=== PATIENT | male | born 1965 | race Caucasian/White ===

== ENCOUNTER → 2022-01-24 12:12 | Outpatient (BNVA) | payer MEDICAID, SELFPAY | PROVIDERS: Visit Provider Family Medicine | DX: R05.9 Cough, unspecified (principal); J18.9 Pneumonia, unspecified organism; H93.13 Tinnitus, bilateral; Z98.890 Other specified postprocedural states; Z90.49 Acquired absence of other specified parts of digestive tract; J44.9 Chronic obstructive pulmonary disease, unspecified | CPT/HCPCS: 71046 ==

== ENCOUNTER → 2022-07-13 15:28 | Outpatient (BNVA) | payer MEDICAID, SELFPAY | PROVIDERS: PCP Family Medicine; Visit Provider Internal Medicine Pulmonary Disease | DX: J44.9 Chronic obstructive pulmonary disease, unspecified (principal); Z87.891 Personal history of nicotine dependence | CPT/HCPCS: 36415; 80053; 82785; 85025; 86003; 99204 ==

== ENCOUNTER 2022-10-05 08:32 | Outpatient (CLI) | payer MEDICAID, SELFPAY ==
--- NOTE | 2022-10-05 09:30 | CT_ITS ---
WS: [id number] LDCT LUNG CANCER SCREENING HISTORY: former smoker TECHNIQUE: Axial imaging performed from the apices to 1 cm below the costophrenic angles. Coronal and sagittal reformats are submitted with axial MIP series. All CT scans at [facility] use at least one of these dose optimization techniques: automated exposure control; mA and/or kV adjustment per patient size (includes targeted exams where dose is matched to clinical indication); or iterativ e reconstruction. DLP: 87.87 mGy.cm DIvol: Mean CTDIvol: 1.70 (mGy) COMPARISON: None available. Diagnostic quality: Satisfactory Lungs: Pulmonary hyperinflation with emphysema. Linear nodularity in the RIGHT upper lobe may be an a asaf of focal bronchiectasis with wall thickening. Nodular component measures up to 5 mm in diameter. There is an additional noncalcified 3 mm nodule RIGHT lower lobe. No mass or endobronchial lesions. Heart: Normal size heart with no pericardial effusion.. Other findings: Minimal atherosclerotic plaque in the coronary arteries. Normal size aorta. Subcutane ous soft tissue nodule along the medial anterior RIGHT chest wall is probably a sebaceous cyst. No os seous destructive process. CT/CT lung screening [id number] IMPRESSION: LUNG-RADS: 3-Probably Benign FOLLOW UP: 6 Month LDCT OTHER FINDINGS (S MODIFIER): None.
== END 2022-10-05 08:33 | disposition home or self-care (01) ==
PROVIDERS: PCP Family Medicine; Visit Provider Internal Medicine Pulmonary Disease
DX: Z12.2 Encounter for screening for malignant neoplasm of respiratory organs (principal); Z87.891 Personal history of nicotine dependence
CPT/HCPCS: 71271

== ENCOUNTER → 2023-01-08 16:36 | Outpatient (BNVA) | payer MEDICAID, SELFPAY | PROVIDERS: PCP Family Medicine; Visit Provider Nurse Practitioner Family | DX: L03.90 Cellulitis, unspecified (principal); J44.89 Other specified chronic obstructive pulmonary disease; J44.9 Chronic obstructive pulmonary disease, unspecified | CPT/HCPCS: 80053 ==

== ENCOUNTER 2023-02-20 08:43 | Outpatient (CLI) | payer MEDICAID, SELFPAY ==
[2023-02-20 09:07] VITALS: PULSE 77; RESP 18; O2SAT 98
[2023-02-20] MEDS: albuterol 2.5 mg/3 mL Neb INHALATION (09:07)
[2023-02-20 09:12] VITALS: PULSE 80
== END 2023-02-20 08:44 | disposition home or self-care (01) ==
PROVIDERS: PCP Family Medicine; Visit Provider Internal Medicine Pulmonary Disease
DX: R06.02 Shortness of breath (principal); Z87.891 Personal history of nicotine dependence; R94.2 Abnormal results of pulmonary function studies
CPT/HCPCS: 94060; 94618; 94726; 94729; J7613

== ENCOUNTER 2023-04-09 12:28 | Outpatient (CLI) | payer MEDICAID, SELFPAY ==
--- NOTE | 2023-04-09 13:00 | CT_ITS ---
WS: [id number] CT chest wo con [id number] HISTORY: lung cancer screening TECHNIQUE: Axial imaging performed through the thorax. Coronal and sagittal reformats are submitted. All CT scans at [facility] use at least one of these dose optimization techniques: automated exposure control; mA and/or kV adjustment per patient size (includes targeted exams where dose is mat ched to clinical indication); or iterative reconstruction. CONTRAST: None DLP: 537.24 mGy.cm COMPARISON: 10/05/2022 Lungs and central airway: Mild hyperinflation with centrilobular emphysema. RIGHT upper lobe nodule i s reidentified and appears slightly larger in size with increasing groundglass attenuation. The nodul ar component is less apparent. The entire complex measures 13 x 7 mm. No change in the 3 mm noncalcif ied nodule RIGHT lower lobe. No new mass or nodule. Pleura: Normal. No pleural effusion. Heart and pericardium: Normal size heart with no pericardial effusion. Mediastinum and joel: No mediastinum or hilar adenopathy. Vessels: Normal size aortic and pulmonary artery. No coronary artery calcifications. Chest wall and lower neck: Reidentified is a subcutaneous soft tissue nodule in the anterior RIGHT th orax measuring 6 x 7 mm. Upper abdomen: Normal adrenal glands. Mildly contracted gallbladder. Osseous structures: No destructive process. IMPRESSION: 1. Previously described RIGHT upper lobe nodule has minimally increased in size. The increase in siz e is predominantly subsolid consolidation. The subsolid opacification now measures 13 x 7 mm. Conside r 6-12-month chest CT follow-up. 2. No change in 3 mm micronodule RIGHT lower lobe. 3. Chronic emphysema. 4. No adenopathy.
== END 2023-04-09 12:29 | disposition home or self-care (01) ==
LOC: RAD 12:29
PROVIDERS: PCP Family Medicine; Visit Provider Internal Medicine Pulmonary Disease
DX: Z12.2 Encounter for screening for malignant neoplasm of respiratory organs (principal); R91.8 Other nonspecific abnormal finding of lung field; J43.9 Emphysema, unspecified
CPT/HCPCS: 71250

== ENCOUNTER 2023-04-25 06:00 | Outpatient (CLI) | payer MEDICAID, SELFPAY | END 2023-04-25 06:01 | LOC: SOT 04-27 10:15 | PROVIDERS: PCP Family Medicine; Visit Provider Nurse Practitioner | DX: Z46.89 Encounter for fitting and adjustment of other specified devices (principal); M25.532 Pain in left wrist | CPT/HCPCS: 97760; 99204; L3906 ==

== ENCOUNTER → 2023-04-25 13:16 | Outpatient (BNVA) | payer MEDICAID, SELFPAY | PROVIDERS: PCP Family Medicine; Referring Provider Family Medicine; Visit Provider Nurse Practitioner | DX: R22.32 Localized swelling, mass and lump, left upper limb (principal); M25.532 Pain in left wrist | CPT/HCPCS: 73130 ==

== ENCOUNTER 2023-05-03 06:39 | Outpatient (CLI) | payer MEDICAID, SELFPAY ==
--- NOTE | 2023-05-03 07:00 | US_ITS ---
WS: [id number] ULTRASOUND SOFT TISSUES LEFT hand HISTORY: left wrist pain COMPARISON: Radiograph 04/25/2023. TECHNIQUE: 2-D and color Doppler imaging is submitted. Ultrasound is directed along the dorsal surface of the LEFT hand at the area of swelling. There is an obvious soft tissue mass which is elongated and complex. There are cystic and solid components witho ut increased vascularity. There is no hyperemia. This mass extends over a length of at least 3.4 cm x 0.5 x 3.1 cm. Mass extends very close to the joint associated with the wrist. Exact location of whic h joint is difficult to determine. There is overlying soft tissue edema. IMPRESSION: Lobulated complex mass without increased vascularity along the dorsal surface of the hand measures 3. 4 x 0.5 x 3.1 cm. With no history of trauma this probably represents a ganglion, nerve sheath tumor w ithin the differential.. There is no increased vascularity.
== END 2023-05-03 06:40 | disposition home or self-care (01) ==
PROVIDERS: PCP Family Medicine; Visit Provider Nurse Practitioner
DX: M25.532 Pain in left wrist (principal); M25.432 Effusion, left wrist
CPT/HCPCS: 76882

== ENCOUNTER → 2023-05-18 08:48 | Outpatient (BNVA) | payer MEDICAID, SELFPAY | PROVIDERS: PCP Family Medicine; Visit Provider Nurse Practitioner | DX: M25.532 Pain in left wrist (principal); R22.32 Localized swelling, mass and lump, left upper limb | CPT/HCPCS: 20605; 99214 ==

== ENCOUNTER → 2023-06-07 08:15 | Outpatient (BNVA) | payer MEDICAID, SELFPAY | PROVIDERS: PCP Family Medicine; Visit Provider Internal Medicine Pulmonary Disease | DX: J44.89 Other specified chronic obstructive pulmonary disease (principal); J45.998 Other asthma; Z12.2 Encounter for screening for malignant neoplasm of respiratory organs; Z87.891 Personal history of nicotine dependence | CPT/HCPCS: 99214 ==

== ENCOUNTER → 2023-06-11 12:40 | Outpatient (BNVA) | payer MEDICAID, SELFPAY | PROVIDERS: PCP Family Medicine; Referring Provider Family Medicine; Visit Provider Dermatology | DX: L72.0 Epidermal cyst (principal); D48.5 Neoplasm of uncertain behavior of skin; D69.2 Other nonthrombocytopenic purpura; D22.5 Melanocytic nevi of trunk | CPT/HCPCS: 11102; 99203 ==

== ENCOUNTER 2023-07-03 11:12 | Outpatient (CLI) | payer MEDICAID, SELFPAY ==
--- NOTE | 2023-07-03 11:30 | PETR_ITS ---
PROCEDURE INFORMATION: Exam: PET/CT Skull Base to Mid-thigh Exam date and time: 07/03/2023 12:28 PM Age: 57 years old Clinical indication: Abnormal findings; Previously described right upper lobe nodule has minimally increased in size. The increase in size is predominantly subsolid consolidation. The subsolid opacification now measures 13 x 7 mm. Consider 6-12-month chest CT follow-up. 2. No change in 3 mm micronodule right lower lobe. 3; Additional info: Increase n size of nodule LABS AND CLINICAL REPORTS: Glucose: 94 mg/dl Treatment strategy for malignancy (PET staging): Initial Staging (PI) TECHNIQUE: Imaging protocol: Following at least four-hour fasting and following the injection of radiopharmaceutical, low dose CT images were obtained. Then, PET images were obtained. Attenuation corrected images were constructed using the CT scan. Fused images of PET and CT were reviewed. The standardized uptake values (SUV) reported below are maximum values within a region of interest, expressed in gm/ml. Exam includes orbital meatal line to mid-thigh. Radiopharmaceutical: 13 mCi F-18 FDG (Fluorodeoxyglucose), IV. Time of imaging post radiopharmaceutical administration: 1 hour Injection site: Left hand COMPARISON: US soft tissue/extremity [id number] 05/03/2023 7:01 AM, CT chest 04/09/2023, CT chest 10/05/2022 FINDINGS: Brain: Visualized brain has normal physiologic uptake. Pharynx: Mild asymmetric enlargement of the left palatine tonsil is noted on series 3, image 27 with asymmetric uptake, SUV max 7.1 compared with SUV max 4.0 on the right. Larynx: No abnormal uptake. Lungs, pleura and trachea: No abnormal uptake. Previously noted right upper lobe subsolid ill-defined region possible nodularity measuring approximately 1.3 x 0.7 cm on series 3, image 66 is unchanged compared with 04/09/2023 and is not radiotracer avid, SUV max 0.6. Similar 3 mm solid right lower lobe nodule on series 3, image 98. Mild bilateral centrilobular emphysematous changes are present. Heart: Normal physiologic uptake. Coronary arteries: Atherosclerotic calcification in the coronary arteries is noted. Mediastinal space: No abnormal uptake. Liver: No abnormal uptake. Gallbladder and bile ducts: No abnormal uptake. Pancreas: No abnormal uptake. Spleen: No abnormal uptake. Adrenal glands: No abnormal uptake. Kidneys and ureters: Normal physiologic uptake. Stomach and bowel: No abnormal uptake. There are scattered colonic diverticula. Vasculature: No abnormal uptake. Lymph nodes: No abnormal uptake. No lymphadenopathy in the head, neck, chest, abdomen, pelvis, and extremities. Bones/joints: A small focus of elevated uptake in the S1 vertebral body on the right is noted without a correlating lesion on the CT images, SUV max 3.2 on series 12, image 181.There is mild diffuse vertebral body spondylosis. Soft tissues: No abnormal uptake in the visualized head, neck, chest, abdomen, pelvis, and extremities. METRICS: Mediastinal blood pool: SUV max 2.7 PET/PET skulltothigh SUBSEQ [id number] IMPRESSION: 1. Elevated uptake in the left palatine tonsil is noted with asymmetric enlargement of the tonsil which may be inflammatory or infectious in etiology. A malignant etiology is less likely. 2. Previously noted right-sided pulmonary nodules are not radiotracer avid. Assessment of subsolid and small nodules is limited by PET-CT. Consider continued CT surveillance. 3. A small focus of mild uptake in the S1 vertebral body on the right is noted, likely related to physiologic uptake, with no corresponding lesion on the CT images. A malignant etiology is less likely. 4. Additional nonurgent findings as detailed above.
== END 2023-07-03 11:13 | disposition home or self-care (01) ==
LOC: RAD 11:12
PROVIDERS: PCP Family Medicine; Visit Provider Internal Medicine Pulmonary Disease
DX: R91.1 Solitary pulmonary nodule (principal); J35.1 Hypertrophy of tonsils
CPT/HCPCS: 78815; A9552

== ENCOUNTER → 2023-08-07 13:40 | Outpatient (BNVA) | payer MEDICAID, SELFPAY | PROVIDERS: PCP Family Medicine; Visit Provider Internal Medicine Pulmonary Disease | DX: J44.89 Other specified chronic obstructive pulmonary disease (principal); Z87.891 Personal history of nicotine dependence; R91.1 Solitary pulmonary nodule | CPT/HCPCS: 99214 ==

== ENCOUNTER → 2023-08-08 11:35 | Outpatient (BNVA) | payer MEDICAID, SELFPAY | PROVIDERS: PCP Family Medicine; Visit Provider Nurse Practitioner Family | DX: R60.0 Localized edema (principal) | CPT/HCPCS: 80053; 83880; 85025 ==

== ENCOUNTER → 2023-11-20 12:05 | Outpatient (BNVA) | payer MEDICAID, SELFPAY | PROVIDERS: PCP Family Medicine; Visit Provider Family Medicine | DX: R30.0 Dysuria (principal) | CPT/HCPCS: 81003 ==

== ENCOUNTER → 2024-02-25 13:58 | Outpatient (BNVA) | payer MEDICAID, SELFPAY | PROVIDERS: PCP Family Medicine; Visit Provider Nurse Practitioner | DX: R22.32 Localized swelling, mass and lump, left upper limb; M25.532 Pain in left wrist | CPT/HCPCS: 73110; 99214 ==

== ENCOUNTER → 2024-03-27 13:46 | Outpatient (BNVA) | payer MEDICAID, SELFPAY | PROVIDERS: PCP Family Medicine; Referring Provider Nurse Practitioner Family; Visit Provider Specialist | DX: R20.0 Anesthesia of skin (principal); R20.2 Paresthesia of skin; M79.631 Pain in right forearm | CPT/HCPCS: 95911 ==

== ENCOUNTER → 2024-04-09 11:39 | Outpatient (BNVA) | payer MEDICAID, SELFPAY | PROVIDERS: PCP Family Medicine; Visit Provider Nurse Practitioner | DX: G56.01 Carpal tunnel syndrome, right upper limb (principal) | CPT/HCPCS: 36415; 80053; 81001; 85025 ==

== ENCOUNTER 2024-05-08 08:28 | Day surgery (SDC) | payer MEDICAID, SELFPAY ==
[2024-05-08] VITALS (10 sets, daily range): BP systolic 123–143; BP diastolic 85–98; PULSE 75–84; RESP 12–20; TEMP 36.1–36.7; O2SAT 92–98; BMI 35.5
[2024-05-08] MEDS: CELEcoxib 200 mg Capsule 400 MG PO (09:20)
[2024-05-08] MEDS: acetaminophen 1,000 MG/100 ML PIGGYBACK 400 MG IV (09:21)
[2024-05-08] MEDS: gabapentin 300 mg Capsule PO (09:21)
[2024-05-08] MEDS: sodium chloride 0.9% 1,000 ML 30 ML IV (09:22)
--- NOTE | 2024-05-08 09:56 | P.ANESASSM_ITS ---
Pre-Anesthetic Assessment Height/Weight: Height 1.63 m Weight 93.894 kg Temp Pulse Resp BP Pulse Ox O2 Del Method 98.1 F 75 18 128/91 93 Room Air 05/08/24 09:09 05/08/24 09:09 05/08/24 09:09 05/08/24 09:09 05/08/24 09:09 05/08/24 09:09 Operation Date: 05/08/24 10:35 Proposed Procedures p Carpal Tunnel Release(Right) - Radha Mendoza MD Familial anesthetic complications: NOne Was Beta Foreign taken within 24 hours: N/A Was Clonidine taken within 24 hours: N/A Last intake: Intake Last Liquid Date 05/07/24 Last Liquid Time 21:00 Last Solid Date 05/07/24 Last Solid Time 17:00 Social No alcohol and No tobacco Exam alert, oriented x 3, clear to auscultation bilaterally and regular rate & rhythm Airway Mallampati: Class II Dentition: full Pulmonary Chronic Obstructive Pulmonary Disease (multiple inhalers - no steroids or hospitalizations within the last year) Anesthetic Plan ASA status: 3 Anesthesia: General Risk of > 500 ml blood loss (7ml/kg in children): No Medications/Allergies Home Medications ?Medication ?Instructions ?Recorded ?Confirmed ?Last Taken ?Type cockup splint #1 ea 04/25/23 04/09/24 Unkn own Rx furosemide 20 mg tablet (Lasix) 20 mg PO QAM PRN swell ing #30 tabs 08/28/23 05/08/24 05/07/24 Rx potassium chloride 10 mEq 10 meq PO DAILY PRN take wit h 08/28/23 05/07/24 Unknown Rx capsule,extended release lasix #30 caps celecoxib 100 mg capsule (Celebrex) 100 mg PO BID arth ritis 90 days 04/15/24 05/07/24 05/07/24 Rx #180 caps fluticasone 250 mcg-salmeterol 50 1 inh inhalation BID #60 ea 04/29/24 05/08/24 05/08/24 Rx mcg/dose blistr powdr for inhalation (Advair Diskus) cetirizine 10 mg tablet (All Day 10 mg PO DAILY allerg y symptoms 05/07/24 05/07/24 05/07/24 History Allergy (cetirizine)) ipratropium 20 mcg-albuterol 100 1 puff inhalation Q4- 5H 05/07/24 05/08/24 05/08/24 History mcg/actuation mist for inhalation (Combivent Respimat) tiotropium bromide 2.5 2 puff inhalation DAILY 04/1305/08/24 05/08/24 History mcg/actuation mist for inhalation (Spiriva Respimat) Allergies Allergy/AdvReac Type Severity Reaction Status Date / Time No Known Allergies Allergy Verified 05/07/24 10:31 Current Medications Generic Name Dose Route Start Last Admin Trade Name Freq PRN Reason Stop Dose Admin Sodium Chloride 1,000 mls @ 30 mls/hr 05/08/24 09:00 05/08/24 09:22 Sodium Chloride 0.9% IV 05/09/24 08:59 30 mls/hr .Q24H SWETA Administration PFSH Anesthesia Medical History Left wrist pain Rotator cuff tear, left COPD (chronic obstructive pulmonary disease) Tinnitus of both ears Surgical History Hx of appendectomy Hx of arthroscopic knee surgery Family History Mother Cancer lung Father Cancer Brother Cancer brain Denies family history of CAD (coronary artery disease) Bleeding disorder Social History Smoking and tobacco/nicotine status: former use of tobacco/nicotine Quit status (tobacco/nicotine): has quit using Year quit tobacco: 12/2018 Former quit date comment: 2 PPD x 44 yrs Second hand smoke exposure: No Alcohol intake: never Substance/Drug Use: never Caregiver/support person: Yes Lives independently: Yes Household members: spouse Marital status: service: No Current occupational status: retired and disabled Current gender identity: Male Special shilpi needs: No Agree to transfusion: Yes Data Anesthesia Cardiac Studies: No Data to Display
--- NOTE | 2024-05-08 10:08 | P.HPUD_ITS ---
Surgery/Procedure H&P Update DATE OF PROCEDURE: May 08, 2024 DATE H&P PERFORMED: 04/18/24 H&P UPDATE INFORMATION: I have reviewed H&P completed within last 30 days, I have examined patient prior to procedure, No changes to prior documentation and [place] [facility] [place] indicated PLANNED PROCEDURE: Operation Date: 05/08/24 10:35 Proposed Procedures p Carpal Tunnel Release(Right) - Radha Mendoza MD Related Problem List Diagnoses (1) Right carpal tunnel syndrome:
[2024-05-08] MEDS: ceFAZolin 2,000 mg SDV 2000 MG IVP (10:25)
[2024-05-08] MEDS: BUPivacaine 0.5% INJ 30 mL 18 ML INJECTION (10:59)
--- NOTE | 2024-05-08 12:16 | PM.OP ---
Operative Report Date of procedure: May 08, 2024 Pre-op diagnosis: Right carpal tunnel syndrome Post-op diagnosis: Right carpal tunnel syndrome Post-op findings: Severe compression across the carpal canal Procedure done: Right carpal tunnel syndrome Implants: None Specimens removed/disposition: None Pathology: None Surgeon: Radha Mendoza MD Blasting Contract Man: None Anesthesia: General (Per LMA, ASA 3) Estimated blood loss (mL): 1 Tourniquet time (min): 20 (At 250 mmHg) IV fluids (mL): 450 Urine output (mL): 0 (No Monge) Complications: None Findings: Findings of significant compression across the carpal canal with thickening of the transverse carpal ligament Condition: stable Disposition: PACU (Then return to same-day surgery for discharge to home) Brief History: This 58-year-old man presented with complaints consistent with carpal tunnel syndrome. He had a nerve conduction study as part of his workup. The nerve conduction study demonstrated probable moderately severe entrapment of the right median nerve at the wrist with a associated diffuse sensorimotor axonal process felt to possibly represent diffuse sensorimotor neuropathy. After discussion, the patient wished to proceed with operative intervention in the form of right carpal tunnel release. Risks and complications were discussed with him. Consents were signed and questions were answered. Procedure: The patient was brought to the operating theater. The patient had a general anesthesia per LMA, ASA 3. The tourniquet was elevated to 250 mmHg for a total tourniquet time of 20 minutes. The patient was also given Ancef 2 g preoperatively. The arm was then prepped and draped with DuraPrep in usual fashion with the arm draped free. A surgical pause was performed. At the time, the surgical pause, we confirmed the site and side of surgery. We also confirmed the patient's identity, appropriate and timely administration of preoperative antibiotics and preoperative surgical markings. An incision was then made along the thenar crease. The incision crossed the wrist joint in a curvilinear fashion. Dissection continued through skin and soft tissues using a scalpel. The palmaris longus was identified along with the transverse carpal ligament. Each of these was released carefully to avoid injury to the median nerve. We were able to dissect gently into the carpal canal which was noted to be quite tight with significant compression across the median nerve. The nerve was visualized and was an hourglass shape. The canal was subsequently palpated to assure there was no bony encroachment upon the canal. There was a quite thickened fibrous tissue within the canal, and this was opened longitudinally as well. The canal was then palpated distally and proximally to assure that my small finger was passed easily without impingement. Finding this to be so, attention was directed to closure. The wound was irrigated with ropivacaine plain. It was then closed with 3-0 nylon in an interrupted mattress fashion. Sterile dressing was then placed consisting of Dermabond, OpSite, fluffed fluffs, sterile soft roll, and an Cristóbal wrap. The tourniquet was released after 20 minutes. There were no complications. There were no specimens. The procedure was well tolerated. Plan is the patient will be discharged home. Related Problem List Diagnoses (1) Right carpal tunnel syndrome:
[2024-05-08] MEDS: TRAMadol 50 mg Tablet PO (12:30)
--- NOTE | 2024-05-08 12:30 | ANE.PACU2 ---
Inpatient post-anesthesia follow up: Airway intact: Yes Vital signs: Temperature 97.3 F Pulse Rate 80 Respiratory Rate 18 Blood Pressure 123/87 Pulse Oximetry 92 Oxygen Delivery Me thod Room Air Oxygen Flow Rate 10 Fraction of Inspir ed Oxygen Hydration adequate: Yes Nausea and vomiting: No Pain level: 1 Mental status: Baseline
== END 2024-05-08 12:37 | disposition home or self-care (01) ==
PROVIDERS: PCP Nurse Practitioner Family; Visit Provider Specialist
PROC: (CPT 64721; principal; 2024-05-08 10:25)
DX: G56.01 Carpal tunnel syndrome, right upper limb (principal); J44.9 Chronic obstructive pulmonary disease, unspecified; Z79.899 Other long term (current) drug therapy; Z87.891 Personal history of nicotine dependence
CPT/HCPCS: 64721; J0131; J0690; J1100; J2405; J2704; J3010; J3490; J7030

== ENCOUNTER → 2024-05-21 09:47 | Outpatient (BNVA) | payer MEDICAID, SELFPAY | PROVIDERS: PCP Nurse Practitioner Family; Visit Provider Nurse Practitioner | DX: Z98.890 Other specified postprocedural states (principal); G56.01 Carpal tunnel syndrome, right upper limb | CPT/HCPCS: 99024 ==

== ENCOUNTER → 2024-08-07 13:20 | Outpatient (BNVA) | payer MEDICAID, SELFPAY | PROVIDERS: PCP Nurse Practitioner Family; Visit Provider Nurse Practitioner Family | DX: J02.9 Acute pharyngitis, unspecified (principal); J44.1 Chronic obstructive pulmonary disease with (acute) exacerbation; J06.9 Acute upper respiratory infection, unspecified | CPT/HCPCS: 87071; 87880 ==

== ENCOUNTER → 2024-10-09 10:48 | Outpatient (BNVA) | payer MEDICAID, SELFPAY | PROVIDERS: PCP Nurse Practitioner Family; Visit Provider Nurse Practitioner Family | DX: R05.9 Cough, unspecified (principal) | CPT/HCPCS: 87426 ==

== ENCOUNTER → 2024-12-15 14:40 | Outpatient (BNVA) | payer MEDICAID, SELFPAY | PROVIDERS: PCP Nurse Practitioner Family; Visit Provider Nurse Practitioner Family | DX: Z79.899 Other long term (current) drug therapy (principal); J44.9 Chronic obstructive pulmonary disease, unspecified | CPT/HCPCS: 80053; 80061; 82306; 83036; 84443; 85025 ==

== ENCOUNTER → 2024-12-22 10:43 | Outpatient (BNVA) | payer MEDICAID, SELFPAY | PROVIDERS: PCP Nurse Practitioner Family; Visit Provider Internal Medicine | DX: J44.89 Other specified chronic obstructive pulmonary disease (principal); Z12.2 Encounter for screening for malignant neoplasm of respiratory organs; R91.1 Solitary pulmonary nodule; J30.2 Other seasonal allergic rhinitis; Z87.891 Personal history of nicotine dependence; J44.9 Chronic obstructive pulmonary disease, unspecified | CPT/HCPCS: 99214; Q3014 ==

== ENCOUNTER → 2024-12-23 12:55 | Outpatient (BNVA) | payer MEDICAID, SELFPAY | PROVIDERS: PCP Nurse Practitioner Family; Visit Provider Nurse Practitioner Family | DX: J44.9 Chronic obstructive pulmonary disease, unspecified (principal) | CPT/HCPCS: 85025 ==

== ENCOUNTER 2025-01-13 11:40 | Outpatient (CLI) | payer MEDICAID, SELFPAY ==
[2025-01-13] MEDS: iohexol 350 mg/mL 500 mL Btl (per mL) IV (12:27)
--- NOTE | 2025-01-13 12:30 | CTR_ITS ---
PROCEDURE INFORMATION: Exam: CT Chest With Contrast; Diagnostic Exam date and time: 01/13/2025 12:20 PM Age: 59 years old Clinical indication: Condition or disease; Lung condition and disease; Pulmonary nodule, solitary; Additional info: Lung nodule TECHNIQUE: Imaging protocol: Diagnostic computed tomography of the chest with contrast. 5 mm axial images and coronal and sagittal MPR's. Radiation optimization: All CT scans at this facility use at least one of these dose optimization techniques: automated exposure control; mA and/or kV adjustment per patient size (includes targeted exams where dose is matched to clinical indication); or iterative reconstruction. Contrast material: OMNI 350; Contrast volume: 100 ml; Contrast route: INTRAVENOUS (IV); COMPARISON: 1. PT PET skull to thigh SUBS [id number] 07/03/2023 12:[address] chest wo con [id number] 04/09/2023 12:[address] lung screening [id number] 10/05/2022 9:01 AM RADIATION DOSE METRICS: Total DLP (mGy-cm): 448.24 FINDINGS: Lungs: Moderate pulmonary emphysema. Previously described right upper lobe ill-defined subsolid density appears unchanged given differences in technique. Measures approximately 11 x 7 mm. Stable 3-4 mm right lower lobe nodule. No new pulmonary consolidation, mass, or suspicious pulmonary nodule. Pleural spaces: No pneumothorax. No pleural effusion. Heart: Heart size is normal. No pericardial effusion. Coronary arteries: Coronary artery calcifications, subjectively mild. Lymph nodes: No enlarged mediastinal or hilar lymph nodes. Upper normal/mildly enlarged bilateral axillary lymph nodes. Vasculature: Thoracic aorta is normal caliber. Main pulmonary artery is normal caliber. Bones/joints: No acute osseous abnormality or suspicious osseous lesion. Soft tissues: Previously described subcentimeter subcutaneous nodule at the anterior right chest wall has decreased in size. Other findings: Included upper abdomen demonstrates no acute abnormality. Stable 1 cm hypodensity in the left hepatic lobe, likely a cyst. Small left renal cyst. CT/CT chest w con* [id number] IMPRESSION: 1. Pulmonary emphysema. Previously described right upper lobe ill-defined subsolid density is unchanged. Stable small right lower lobe nodule. No new pulmonary consolidation, mass, or suspicious pulmonary nodule. Recommend CT chest follow-up in 1 year. 2. Upper normal/mildly enlarged bilateral axillary lymph nodes. 3. Other chronic and incidental findings as detailed above. COMMENTS: The presence of pulmonary emphysema on CT is an independent risk factor for lung cancer. In the absence of a history or active diagnosis of lung cancer, it is recommended that this patient with emphysema be evaluated for enrollment in a low dose CT lung cancer screening program.
== END 2025-01-13 11:41 | disposition home or self-care (01) ==
LOC: RAD 11:40
PROVIDERS: PCP Nurse Practitioner Family; Visit Provider Internal Medicine
DX: J44.9 Chronic obstructive pulmonary disease, unspecified (principal); J43.9 Emphysema, unspecified; R91.8 Other nonspecific abnormal finding of lung field; I25.10 Atherosclerotic heart disease of native coronary artery without angina pectoris; R59.0 Localized enlarged lymph nodes; N28.1 Cyst of kidney, acquired; K76.89 Other specified diseases of liver
CPT/HCPCS: 71260

== ENCOUNTER → 2025-01-29 10:57 | Outpatient (BNVA) | payer MEDICAID, SELFPAY | PROVIDERS: PCP Nurse Practitioner Family; Visit Provider Internal Medicine | DX: J44.89 Other specified chronic obstructive pulmonary disease (principal); R91.1 Solitary pulmonary nodule; J30.9 Allergic rhinitis, unspecified; Z12.2 Encounter for screening for malignant neoplasm of respiratory organs; Z87.891 Personal history of nicotine dependence | CPT/HCPCS: 99214 ==

== ENCOUNTER → 2025-02-10 13:26 | Outpatient (BNVA) | payer MEDICAID, SELFPAY | PROVIDERS: PCP Nurse Practitioner Family; Visit Provider Nurse Practitioner Family | DX: J44.9 Chronic obstructive pulmonary disease, unspecified (principal) | CPT/HCPCS: 80053; 80061; 84443; 85025 ==